=== PATIENT | male | born 1935 | race Two or more races ===

== ENCOUNTER 2021-01-01 08:50 | Outpatient (CLI) | payer OTHER | END 2021-01-01 08:58 | disposition home or self-care (01) | LOC: LAB 08:50 | PROVIDERS: ATTEND Orthopaedic Surgery | DX: E88.89 Other specified metabolic disorders (principal); E83.42 Hypomagnesemia; M85.89 Other specified disorders of bone density and structure, multiple sites; M81.8 Other osteoporosis without current pathological fracture; E56.1 Deficiency of vitamin K ==

== ENCOUNTER → 2021-03-31 | Outpatient (CLI) | payer OTHER | END | disposition home or self-care (01) | LOC: RAD 12:12 | PROVIDERS: ATTEND Orthopaedic Surgery | DX: M25.561 Pain in right knee (principal); M25.562 Pain in left knee; M25.551 Pain in right hip; M25.552 Pain in left hip ==

== ENCOUNTER 2021-04-14 10:42 | Outpatient (CLI) | payer OTHER | END 2021-04-14 10:56 | disposition home or self-care (01) | LOC: MRI 10:42 | PROVIDERS: ATTEND Orthopaedic Surgery | DX: M17.12 Unilateral primary osteoarthritis, left knee (principal); M23.92 Unspecified internal derangement of left knee | CPT/HCPCS: 73718 ==

== ENCOUNTER 2021-05-28 07:47 | Outpatient (CLI) | payer OTHER ==
[2021-06-09] MEDS ORDERED: COZAAR100 MG PO (09:51)
[2021-06-09] MEDS ORDERED: NORVASC5 MG PO (09:51)
[2021-06-09] MEDS ORDERED: LIPITOR20 MG PO (09:52)
[2021-06-09] MEDS ORDERED: CILOSTAZOL100 MG PO (09:52)
[2021-06-09] MEDS ORDERED: LEVO-T75 MCG PO (09:52)
[2021-06-09] MEDS ORDERED: PLAVIX75 MG PO (09:52)
[2021-06-09] MEDS ORDERED: METAMUCIL MULT660 GM PO (10:21)
== END 2021-05-28 07:55 | disposition home or self-care (01) ==
LOC: LAB 07:47
PROVIDERS: ATTEND Orthopaedic Surgery
DX: D64.89 Other specified anemias (principal); E88.89 Other specified metabolic disorders; D68.8 Other specified coagulation defects; N39.0 Urinary tract infection, site not specified; Z22.322 Carrier or suspected carrier of Methicillin resistant Staphylococcus aureus; I10 Essential (primary) hypertension; I49.8 Other specified cardiac arrhythmias; Z76.89 Persons encountering health services in other specified circumstances

== ENCOUNTER 2021-06-14 05:54 | Day surgery (SDC) | payer OTHER ==
[~2021-06-14 05:54] MED LIST: CILOSTAZOL100 MG PO; COZAAR100 MG PO; LEVO-T75 MCG PO; LIPITOR20 MG PO; METAMUCIL MULT660 GM PO; NORVASC5 MG PO; PLAVIX75 MG PO
== END 2021-06-14 13:45 | disposition home or self-care (01) ==
LOC: CIR.AMB 05:54
PROVIDERS: ATTEND Orthopaedic Surgery
DX: M23.322 Other meniscus derangements, posterior horn of medial meniscus, left knee (principal); M23.342 Other meniscus derangements, anterior horn of lateral meniscus, left knee; M12.262 Villonodular synovitis (pigmented), left knee; M22.42 Chondromalacia patellae, left knee; Z20.822 Contact with and (suspected) exposure to COVID-19

== ENCOUNTER 2022-11-02 15:31 | Outpatient (CLI) | payer OTHER | END 2022-11-02 15:35 | disposition home or self-care (01) | LOC: RAD 15:31 | PROVIDERS: ATTEND Orthopaedic Surgery | DX: M16.0 Bilateral primary osteoarthritis of hip (principal); M17.0 Bilateral primary osteoarthritis of knee ==

== ENCOUNTER 2023-10-16 13:12 | Outpatient (CLI) | payer OTHER | END 2023-10-16 13:13 | disposition home or self-care (01) | LOC: NUCLEAR 13:12 | PROVIDERS: ATTEND Orthopaedic Surgery | DX: M81.0 Age-related osteoporosis without current pathological fracture (principal) ==

== ENCOUNTER → 2023-11-03 08:14 | Outpatient (CLI) | payer OTHER ==
[2023-11-03 09:24] LABS: ALBUMIN 3.9 gm/dL (3.4-5.0); BILIRUBIN TOTAL 0.59 mg/dL (0.3-1.2); CREATININE SERUM 1.26 mg/dL (0.70-1.30); GFR 54.14; GLOBULINA 3.3 G/DL (2.4-3.5); MAGNESIUM 1.9 mg/dL (1.8-2.4); PHOSPHOROUS 3.3 mg/dL (2.5-4.9); POTASSIUM 4.12 mEq/L (3.5-5.1); TOTAL PROTEIN 7.2 gm/dL (6.4-8.2)
[2023-11-04 12:11] LABS: CALCIUM IONIZED 4.9 mg/dL (4.5-5.6)
== END | disposition home or self-care (01) ==
LOC: LAB 08:14
PROVIDERS: ATTEND Orthopaedic Surgery
DX: M85.9 Disorder of bone density and structure, unspecified (principal); E83.42 Hypomagnesemia; E56.1 Deficiency of vitamin K; E88.89 Other specified metabolic disorders; M81.8 Other osteoporosis without current pathological fracture

== ENCOUNTER → 2024-09-23 07:27 | Outpatient (CLI) | payer OTHER | END | disposition home or self-care (01) | LOC: LAB 07:27 | PROVIDERS: ATTEND Orthopaedic Surgery | DX: E55.9 Vitamin D deficiency, unspecified (principal); M85.9 Disorder of bone density and structure, unspecified; E56.1 Deficiency of vitamin K ==

== ENCOUNTER → 2024-10-30 11:18 | Outpatient (CLI) | payer OTHER | END | disposition home or self-care (01) | LOC: NUCLEAR 11:18 | PROVIDERS: ATTEND Orthopaedic Surgery | DX: M81.0 Age-related osteoporosis without current pathological fracture (principal) ==

== ENCOUNTER 2025-01-15 09:57 | Outpatient (CLI) | payer OTHER | END 2025-01-15 09:59 | disposition home or self-care (01) | LOC: RAD 09:57 | PROVIDERS: ATTEND Orthopaedic Surgery | DX: M25.551 Pain in right hip (principal); M25.552 Pain in left hip ==

== ENCOUNTER 2025-11-10 09:28 | Outpatient (CLI) | payer OTHER | END 2025-11-10 09:30 | disposition home or self-care (01) | LOC: NUCLEAR 09:28 | PROVIDERS: ATTEND Orthopaedic Surgery | DX: M81.0 Age-related osteoporosis without current pathological fracture (principal) ==